=== PATIENT | male | born 1985 | race Caucasian/White ===

== ENCOUNTER → 2016-11-17 | Outpatient (CLI) | payer OTHER ==
--- NOTE | 2016-11-17 10:57 | REP ---
RIGHT FOOT SERIES: Four views. HISTORY: Pain in the lateral aspect of the foot with obvious bruising and swelling. Contusion. FINDINGS: There is a comminuted fracture of the proximal phalanx of the 5th digit. There is an adjacent nondisplaced fracture of the proximal end of the proximal phalanx of the 4th digit. There is associated swelling. Overall mineralization pattern is normal. No other fracture is seen. IMPRESSION: Fractures of the proximal phalanges of the 4th and 5th digits. Signed by Renny Loaiza MD 11/17/2016 07:27 P
== END ==
LOC: M WUC 09:57
PROVIDERS: ATTEND Physician Assistant
DX: S92.511A Displaced fracture of proximal phalanx of right lesser toe(s), initial encounter for closed fracture (principal); X58.XXXA Exposure to other specified factors, initial encounter; Y92.9 Unspecified place or not applicable